=== PATIENT | male | born 1955 | race Caucasian/White ===

== ENCOUNTER → 2019-02-13 10:44 | Outpatient (CLI) | payer OTHER ==
--- NOTE | 2019-02-18 13:56 | EC ---
PATIENT:ANNETTE VILLALBA DATE OF SERVICE: 02/13/19 SEX: M MEDICAL RECORD: [id number] DATE OF : [birth year] LOCATION:[facility] AGE OF PATIENT: 63 ADMISSION DATE: 02/13/19 REFERRING PHYSICIAN: INTERPRETING PHYSICIAN: FALGUNI THOMPSON MD ECHOCARDIOGRAM REPORT ECHO CHARGES 4 ECHO COMPLETE Date: 02/13/19 CLINICAL DIAGNOSIS: EDEMA/YIN/MURMUR H/O HTN ECHOCARDIOGRAPHIC MEASUREMENTS (adult normal given) AC root (d.<3.7cm) 4.1 cm LV Septum d (<1.2 cm> 1.4 cm Valve Excursion 2.2 cm LV Septum (systole) 2.0 cm Left Atria (s.<4.0cm> 3.5 cm LVPW d(<1.2cm) 1.3 cm RV (d.<2.3cm) 3.2 cm LVPW (sytole) 2.0 cm LV diastole(<5.6CM) 5.2 cm MV E-F(>70mm/sec) cm LV systole 3.7 cm LVOT Diameter 2.5 cm MV exc.(>10mm) cm Est.ejection fraction (50-75%) % DOPPLER: LVIT cm/sec A 54.0 cm/sec E 77.0 cm/sec LA cm/sec RVSP 21.1 mmHg LVOT 106 cm/sec AOP1/2T m/s Asc. Ao 139 cm/sec RVOT 65.0 cm/sec RA cm/sec PA 78.0 cm/sec AV Gradient Peak 7.7 mmHg AV Mean 3.2 mmHg AV Area 4.1 cm MV Gradient Peak 3.6 mmHg MV Mean 1.5 mmHg MV Area cm COMMENTS: OP - HC Kitchen Bath Designer: 1 CURTIS HUGO Body Specialist: 3 Dr. Ko TAPE# PACS Pericardial Effusion N DATE OF SERVICE: Adequate 2D, color flow, spectral Doppler, and M-mode. LVH is present. LV internal dimension is normal. Wall motion is normal. EF is greater than or equal to 55%. Aortic valve is tricuspid. No evidence of stenosis by Doppler interrogation. The left atrium is normal. Mitral valve shows no prolapse. Trace MR. Right-sided chambers grossly normal. Trace TR. TRANSINT:[id number] Voice Confirmation ID: [id number] DOCUMENT ID: [id number] ECHOCARDIOGRAM REPORT [id number] ANNETTE VILLALBA,FALGUNI Dhaliwal MD at 1356 CC: [id number] DICTATION DATE: 02/15/19 1224 MIDDLE STITCHER: 02/15/19 1239 DEP CLI 02/13/19 [place] [id number] [place] [id number]
== END | disposition home or self-care (01) ==
LOC: D.HCCECHO 10:44
PROVIDERS: ATTEND Internal Medicine Interventional Cardiology
DX: I08.1 Rheumatic disorders of both mitral and tricuspid valves (principal)